=== PATIENT | female | born 1985 | race Caucasian/White ===

== ENCOUNTER → 2022-03-11 | Outpatient (CLI) | payer OTHER ==
[2022-03-12 08:15] LABS: LUTEINIZING HORMONE(LH) 1.8 mIU/mL (.); PROLACTIN 15.3 ng/mL (4.8-23.3)
[2022-03-12 10:16] LABS: INSULIN 23.7 uIU/mL (2.6-24.9)
[2022-03-13 21:06] LABS: TESTOSTERONE, SERUM 39 ng/dL (8-60)
== END ==
LOC: LAB 13:28
PROVIDERS: Nurse Practitioner Family
DX: N97.9 Female infertility, unspecified (principal)
CPT/HCPCS: 36415; 82627; 82947; 83001; 83002; 84146; 84402; 84403; 84439; 84443; 84702